=== PATIENT | female | born 1995 | race Caucasian/White ===

== ENCOUNTER 2018-01-24 11:45 | Emergency (ER) | payer OTHER ==
[~2018-01-24] VITALS: Ht 160 cm; Wt 60.8 kg
[~2018-01-24 11:45] MED LIST: FOLIC ACID0.4 MG; IRON1 TAB
== END 2018-01-24 16:10 | disposition home or self-care (01) ==
LOC: ER 11:45
DX: B34.9 Viral infection, unspecified (principal)

== ENCOUNTER → 2018-02-19 | Emergency (ER) | payer OTHER ==
[~2018-02-19] VITALS: Ht 160 cm; Wt 63.5 kg
== END | disposition home or self-care (01) ==
LOC: ER 10:49
DX: K52.9 Noninfective gastroenteritis and colitis, unspecified (principal)

== ENCOUNTER 2018-06-06 11:27 | Emergency (ER) | payer OTHER ==
[~2018-06-06] VITALS: Ht 160 cm; Wt 66.2 kg
== END 2018-06-06 16:06 | disposition home or self-care (01) ==
LOC: ER 11:27
DX: K52.9 Noninfective gastroenteritis and colitis, unspecified (principal)

== ENCOUNTER 2022-09-25 14:47 | Emergency (ER) | payer OTHER ==
[~2022-09-25] VITALS: Ht 157.5 cm; Wt 77.1 kg
== END 2022-09-25 17:16 | disposition home or self-care (01) ==
LOC: ER 14:47
DX: L02.415 Cutaneous abscess of right lower limb (principal); L02.31 Cutaneous abscess of buttock